=== PATIENT | female | born 1980 | race American Indian/Alaskan Native ===

== ENCOUNTER 2018-04-09 20:18 | Emergency (ER) | payer MEDICARE ==
[2018-04-09] MEDS ORDERED: THERMAZENE 50 GRAM TP ONE (20:33)
[2018-04-09 20:53] VITALS: BP 125/74
[2018-04-10] MEDS ORDERED: THERMAZENE 50 GRAM TP ONE (02:23)
[2018-04-10] MEDS ORDERED: PERCOCET 5/325 PO ONE (02:23)
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
== END 2018-04-10 04:23 | disposition home or self-care (01) ==
LOC: ED 20:18
DX: T24.211A Burn of second degree of right thigh, initial encounter (principal); F17.200 Nicotine dependence, unspecified, uncomplicated; F31.9 Bipolar disorder, unspecified; X12.XXXA Contact with other hot fluids, initial encounter; Y93.G3 Activity, cooking and baking; Y99.8 Other external cause status; Y92.89 Other specified places as the place of occurrence of the external cause

== ENCOUNTER 2021-10-14 02:05 | Emergency (ER) | payer SELFPAY ==
[2021-10-14 02:56] VITALS: BP 112/84
== END 2021-10-14 03:00 | disposition left against medical advice (07) ==
LOC: ED 02:05
DX: S91.311A Laceration without foreign body, right foot, initial encounter (principal); X58.XXXA Exposure to other specified factors, initial encounter; Y93.89 Activity, other specified; Y92.89 Other specified places as the place of occurrence of the external cause; Y99.8 Other external cause status; Z53.21 Procedure and treatment not carried out due to patient leaving prior to being seen by health care provider